=== PATIENT | male | born 1995 | race Asian ===

== ENCOUNTER 2022-04-17 19:56 | Emergency (ER) | payer BC, SELFPAY ==
[2022-04-17 20:00] VITALS: BP 126/59; PULSE 83; RESP 18; TEMP 37.3; O2SAT 100; BMI 23.0
[2022-04-17 20:30] VITALS: BP 119/75; PULSE 82; RESP 18; O2SAT 100
[2022-04-17 20:35] LABS: Add Manual Diff / Slide Review NO; Basophils Absolute Auto 0 /uL (0-100); Basophils Percent Auto 0.6 % (0-2); Eosinophils Absolute Auto 100 /uL (0-450); Eosinophils Percent Auto 1.2 % (2-4); Hematocrit 47.8 % (41-53); Hemoglobin 16.9 g/dL (13.5-17.5); Lymphocytes Absolute Auto 1100 /uL (1100-4500); Lymphocytes Percent Auto 14.3 % (25-40); Mean Corpuscular HGB Conc 35.3 % (30-36); Mean Corpuscular Hemoglobin 31.5 PG (26-34); Mean Corpuscular Volume 89.2 fL (80-100); Monocytes Absolute Auto 500 /uL (0-900); Monocytes Percent Auto 7.1 % (3-14); Neutrophils Absolute Auto 5900 /uL (1500-7000); Neutrophils Percent Auto 76.8 % (50-75); Platelet Count 247 X10^3/uL (150-400); Red Blood Cell Count 5.36 X10^6/uL (4.5-5.9); Red Cell Distribution Width 12.4 % (11.6-14.8); White Blood Cell Count 7.7 X10^3/uL (4.5-11.0)
[2022-04-17 21:37] LABS: Alanine Aminotransferase 23 IU/L (<50); Alkaline Phosphatase 55 U/L (38-126); Aspartate Aminotransferase 23 IU/L (17-59); BUN Creatinine Ratio 14.8 (6-22); Bilirubin Total 0.6 mg/dL (0.2-1.3); Blood Urea Nitrogen 13 mg/dL (9-20); Calcium 8.9 mg/dL (8.4-10.2); Carbon Dioxide 27 mmol/L (22-32); Chloride 99 mmol/L (98-107); Estimated Glomerular Filt Rate > 60 mL/min (>60); Glucose 70 mg/dL (70-100); Sodium 137 mmol/L (137-145)
[2022-04-17 22:05] LABS: PCO2 VBG 42.9 mmHg (45-50); PO2 VBG 27 mmHg (35-45); pH VBG 7.44 (7.33-7.43)
[2022-04-17 22:06] LABS: HCO3 VBG 29 mmol/L (23-28); Total CO2 VBG 30 mmol/L (24-29)
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
[2022-04-17] MEDS: SODIUM CHLORIDE 0.9% 1,000 ML 1000 ML IV (22:57)
[2022-04-17 23:00] VITALS: BP 126/73; PULSE 69; RESP 18; O2SAT 99
[2022-04-18 08:53] LABS: Oxygen Saturation VBG 51 % (70-75)
[2022-04-20 15:58] LABS: Albumin 4.7 g/dL (3.5-5.0); Albumin Globulin Ratio 1.4 (1.0-2.8); Globulin 3.3 g/dL (1.7-4.1); HEMOLYSIS 27 (0-50)
== END 2022-04-17 23:32 | disposition home or self-care (01) ==
PROVIDERS: Emergency Provider Emergency Medicine
DX: R41.0 Disorientation, unspecified (principal); Z77.29 Contact with and (suspected) exposure to other hazardous substances
CPT/HCPCS: 36415; 80053; 82805; 85025; 99283; 99284

== ENCOUNTER → 2023-09-04 14:41 | Outpatient (CLI) | payer OTHER, MEDICAID, SELFPAY ==
--- NOTE | 2023-09-04 14:44 | DI.RAD.S_ITS ---
PROCEDURE: XR FINGER RT MIN 2V INDICATIONS: Right finger injury TECHNIQUE: AP hand, 2 views of the right 2nd finger(s) acquired. COMPARISON: None. FINDINGS: Bones: No fractures or dislocations. No suspicious bony lesions. Soft tissues: No suspicious soft tissue calcifications. IMPRESSION: No acute bony abnormality. If pain persists, followup imaging in 5-7 days is recommended to exclude occult fracture. Dictated by: Odessa Hayes M.D. on 09/04/2023 at 16:39 Approved by: Odsesa Hayes M.D. on 09/04/2023 at 16:39
== END ==
PROVIDERS: Referring Provider Nurse Practitioner Family; Visit Provider Nurse Practitioner Family
DX: S69.91XA Unspecified injury of right wrist, hand and finger(s), initial encounter (principal); X58.XXXA Exposure to other specified factors, initial encounter
CPT/HCPCS: 73140

== ENCOUNTER → 2024-06-10 09:33 | Outpatient (CLI) | payer OTHER, SELFPAY ==
--- NOTE | 2024-06-10 09:40 | DI.RAD.S_ITS ---
PROCEDURE: XR LUMBAR SPINE 2-3V INDICATIONS: LUMBAR SPRAIN TECHNIQUE: 3 views of the lumbar spine were acquired. COMPARISON: None. FINDINGS: Bones: 5 [id number] vertebrae are present. There is normal bony alignment. No vertebral body compression fractures. No suspicious bony lesions. Soft tissues: Overlying bowel gas pattern is normal. No suspicious soft tissue calcifications. IMPRESSION: No acute bony abnormality. Dictated by: Tk Newton M.D. on 06/10/2024 at 18:24 Approved by: Tk Newton M.D. on 06/10/2024 at 18:25
== END ==
PROVIDERS: Referring Provider Family Medicine; Visit Provider Family Medicine
DX: S33.5XXA Sprain of ligaments of lumbar spine, initial encounter (principal); X58.XXXA Exposure to other specified factors, initial encounter
CPT/HCPCS: 72100

== ENCOUNTER → 2024-10-05 11:44 | Outpatient (CLI) | payer OTHER, SELFPAY ==
--- NOTE | 2024-10-05 11:48 | DI.RAD.S_ITS ---
PROCEDURE: XR NASAL BONES MIN 3V INDICATIONS: NASAL TRAUMA TECHNIQUE: 3 views of the nasal bones acquired. COMPARISON: None. FINDINGS: Bones: Cortical irregularity the bilateral nasal bones consistent with mildly displaced comminuted fractures. Moderate nasal bridge swelling. Nasal septum is midline. Soft tissues: No suspicious soft tissue calcifications. IMPRESSION: Mildly displaced partially comminuted bilateral nasal bone fractures with overlying soft tissue swelling. Dictated by: Tk Newton M.D. on 10/06/2024 at 5:27 Approved by: Tk Newton M.D. on 10/06/2024 at 5:29
== END ==
PROVIDERS: PCP Family Medicine; Referring Provider Family Medicine; Visit Provider Family Medicine
DX: S02.2XXA Fracture of nasal bones, initial encounter for closed fracture (principal); X58.XXXA Exposure to other specified factors, initial encounter
CPT/HCPCS: 70160